=== PATIENT | female | born 1985 ===

== ENCOUNTER 2017-03-05 21:25 | Emergency (ER) | payer SELFPAY ==
[~2017-03-05] VITALS: Ht 182.9 cm; Wt 78.9 kg
[~2017-03-05 21:25] MED LIST: ALBU90OI INH; AMOX500 PO; CODGUAEL PO; DOXY100 PO; HYDACE5 PO; HYDGUAL120 PO; NAPR550 PO; OXYACE5T PO; PRED20 PO; RXNAPNA550 PO; SULTRIDS PO
[2017-03-05] MEDS ORDERED: ALBU90OI61 INH (21:37)
== END 2017-03-05 23:15 | disposition left against medical advice (07) ==
LOC: ER 21:25
DX: Z53.21 Procedure and treatment not carried out due to patient leaving prior to being seen by health care provider (principal)
CPT/HCPCS: 99281